=== PATIENT | female | born 1980 | race African-American/Black ===

== ENCOUNTER 2016-10-07 17:21 | Outpatient (CLI) | payer OTHER ==
[2016-10-07 18:02] LABS: PH,URINE 6.5 (5.0-8.0); URINE BILIRUBIN NEGATIVE (NEGATIVE); URINE BLOOD 4+ (NEGATIVE); URINE GLUCOSE (UA) NEGATIVE (NEGATIVE); URINE LEUKOCYTE ESTERASE 1+ (NEGATIVE); URINE NITRITE NEGATIVE (NEGATIVE); URINE PROTEIN NEGATIVE (NEGATIVE); URINE UROBILINOGEN NORMAL (0-1 mg/dl)
[2016-10-07 18:11] LABS: URINE APPEARANCE CLOUDY; URINE COLOR YELLOW
[2016-10-07 18:25] LABS: URINE BACTERIA 2+
== END 2016-10-07 19:15 | disposition home or self-care (01) ==
LOC: FBCOUT 17:21 → FBC 17:23 → FBCOUT 19:15
PROVIDERS: ATTEND Family Medicine
DX: O46.90 Antepartum hemorrhage, unspecified, unspecified trimester (principal); Z3A.00 Weeks of gestation of pregnancy not specified; O09.529 Supervision of elderly multigravida, unspecified trimester
CPT/HCPCS: 81001; 59050; 81002; G0463